=== PATIENT | male | born 1980 | race Caucasian/White ===

== ENCOUNTER 2021-06-23 12:27 | Emergency (ER) | payer OTHER ==
[2021-06-23 12:30] VITALS: TEMP 98
[2021-06-23] MEDS ORDERED: OXYMETAZOLINE 0.05% NASL SPRAY 1 SPRAY BOTTLE NASAL STA (12:35)
[2021-06-23] MEDS ORDERED: ALPRAZolam 1 MG TAB PO STA (12:58)
--- NOTE | 2021-06-23 13:00 | ED ---
General Adult HPI - General Chief complaint: ENT Stated complaint: Nosebleed Time Seen by Provider: 06/23/21 12:33 Source: patient Mode of arrival: ambulatory Limitations: no limitations - History of Present Illness Initial comments: This 41-year-old male with past medical history of hypertension presents emergency Department with a nosebleed. Patient states he has had a lot of stress lately with his mom dying and him being fired from his job which has increased his blood pressure at home. Patient states he has had 2 nosebleeds earlier in the week where he was seen at [facility] for his nosebleed. Patient denies being on any blood thinners. Patient states he was prescribed blood pressure medication last week which he believes is amlodipine and Lisinopril. Patient states he was talking to his friend about his mother passing away when the nosebleed began. Patient states this nosebleed that he currently has began around a half-hour ago. He states he has been holding pressure to his nose and states that it is coming out of his left nare. Patient denies any chest pain, shortness of breath, abdominal pain, nausea, vomiting, change in vision, headache, change in bowel or bladder. - Related Data Home Medications Medication Instructions Recorded Confirmed amLODIPine BESYLATE [Norvasc] 2.5 mg PO DAILY 06/23/21 06/23/21 lisinopriL 10 mg PO DAILY 06/23/21 06/23/21 metFORMIN HCL [Glucophage] 500 mg PO BID 06/23/21 06/23/21 Previous Rx's Medication Instructions Recorded ALPRAZolam [Xanax] 1 mg PO Q8H PRN 3 Days #9 tab 06/23/21 Amoxic-Pot Clav 875-125Mg 1 tab PO Q12HR #10 tab 06/23/21 [Augmentin 875-125] Allergies Allergy/AdvReac Type Severity Reaction Status Date / Time No Known Allergies Allergy Verified 06/23/21 14:39 Review of Systems ROS Statement: Those systems with pertinent positive or pertinent negative responses have been documented in the HPI. ROS Other: All systems not noted in ROS Statement are negative. Past Medical History Past Medical History: Hypertension History of Any Multi-Drug Resistant Organisms: None Reported Past Surgical History: No Surgical Hx Reported Past Psychological History: No Psychological Hx Reported Smoking Status: Never smoker Past Alcohol Use History: None Reported Past Drug Use History: Marijuana General Exam Limitations: no limitations General appearance: alert, in no apparent distress Head exam: Present: atraumatic Eye exam: Present: EOMI Pupils: Present: normal accommodation ENT exam: Present: other (Patient with 2 towels with a significant amount of bright red blood on them. Patient with bright red blood clot coming out of the left naris.) Neck exam: Present: full ROM Respiratory exam: Present: normal lung sounds bilaterally. Absent: respiratory distress, wheezes, rales, rhonchi, stridor Cardiovascular Exam: Present: regular rate, normal rhythm, normal heart sounds. Absent: systolic murmur, diastolic murmur, rubs, gallop, clicks GI/Abdominal exam: Present: soft, normal bowel sounds. Absent: distended, tenderness, guarding, rebound, rigid Extremities exam: Present: full ROM Back exam: Present: full ROM. Absent: CVA tenderness (R), CVA tenderness (L) Neurological exam: Present: alert, oriented X3 Psychiatric exam: Present: normal affect, normal mood Skin exam: Present: warm, dry, intact, normal color. Absent: rash Course Vital Signs 06/23/21 06/23/21 06/23/21 12:28 14:05 15:35 Temperature 98 F Pulse Rate 110 H 89 86 Respiratory 20 18 20 Rate Blood Pressure 213/107 140/112 144/104 O2 Sat by Pulse 98 95 98 Oximetry - Reevaluation(s) Reevaluation #1: 06/23/21 15:04 After Afrin spray, nasal packing, Xanax, patient's blood pressure was decreased and hemostasis was obtained. Medical Decision Making - Medical Decision Making This 41-year-old male with a past medical history of hypertension presents emergency Department with nosebleed. Merocel placed in left nostril. Afrin nasal spray was used and bilateral nostrils, nasal clamp was put on. Hemostasis was obtained. No blood draining down the posterior oropharynx. No blood coming from either nostril. After Xanax was given, blood pressure dropped from 213/107 down to 140/112. While patient was in the emergency room he denied having any high blood pressure symptoms such as headache, nausea, vomiting, double or blurred vision. Labs unremarkable. Patient informed to take antibiotics and to keep the nasal packing in place until he follows up with an ENT in the next 48- 72 hours. Strict return precautions were discussed. Patient verbally agreed to plan. Patient sent home in stable condition. Case discussed with my attending, . - Lab Data Result diagrams: 06/23/21 13:58 06/23/21 13:58 Lab Results 06/23/21 06/23/21 06/23/21 Range/Units 13:58 13:58 13:58 WBC 8.5 (3.8-10.6) k/uL RBC 4.79 (4.30-5.90) m/uL Hgb 14.6 (13.0-17.5) gm/dL Hct 43.4 (39.0-53.0) % MCV 90.6 (80.0-100.0) fL MCH 30.5 (25.0-35.0) pg MCHC 33.7 (31.0-37.0) g/dL RDW 13.3 (11.5-15.5) % Plt Count 356 (150-450) k/uL MPV 6.8 Neutrophils % 76 % Lymphocytes % 18 % Monocytes % 3 % Eosinophils % 1 % Basophils % 1 % Neutrophils # 6.5 (1.3-7.7) k/uL Lymphocytes # 1.6 (1.0-4.8) k/uL Monocytes # 0.2 (0-1.0) k/uL Eosinophils # 0.1 (0-0.7) k/uL Basophils # 0.1 (0-0.2) k/uL PT 10.1 (9.0-12.0) sec INR 0.9 (<1.2) APTT 22.0 (22.0-30.0) sec Sodium 137 (137-145) mmol/L Potassium 4.1 (3.5-5.1) mmol/L Chloride 100 (98-107) mmol/L Carbon Dioxide 30 (22-30) mmol/L Anion Gap 7 mmol/L BUN 16 (9-20) mg/dL Creatinine 0.96 (0.66-1.25) mg/dL Est GFR (CKD-EPI)AfAm >90 (>60 ml/min/1.73 sqM) Est GFR (CKD-EPI)NonAf >90 (>60 ml/min/1.73 sqM) Glucose 224 H (74-99) mg/dL Calcium 9.7 (8.4-10.2) mg/dL Total Bilirubin 1.0 (0.2-1.3) mg/dL AST 36 (17-59) U/L ALT 52 H (4-49) U/L Alkaline Phosphatase 70 (38-126) U/L Total Protein 7.8 (6.3-8.2) g/dL Albumin 4.1 (3.5-5.0) g/dL Disposition Clinical Impression: Epistaxis Disposition: HOME SELF-CARE Condition: Stable Instructions (If sedation given, give patient instructions): Nosebleed (ED) Additional Instructions: Return to the emergency department with any concerning, new, worsening symptoms. Please follow-up with ears nose and throat within the next 48-72 hours. Please follow up with her primary care provider in the next 24-48 hours for blood pressure control. Take antibiotics as directed. Prescriptions: Amoxic-Pot Clav 875-125Mg [Augmentin 875-125] 1 tab PO Q12HR #10 tab ALPRAZolam [Xanax] 1 mg PO Q8H PRN 3 Days #9 tab PRN Reason: Anxiety Is patient prescribed a controlled substance at d/c from ED?: No Referrals: None,Stated [Primary Care Provider] - 1-2 days Jose Madrigal MD [STAFF PHYSICIAN] - 1-2 days Time of Disposition: 14:55
[2021-06-23 14:10] LABS: Basophils # (A) 0.1 k/uL (0-0.2); Basophils % (A) 1 %; Eosinophils # (A) 0.1 k/uL (0-0.7); Eosinophils % (A) 1 %; HCT 43.4 % (39.0-53.0); HGB 14.6 gm/dL (13.0-17.5); Lymphocytes # (A) 1.6 k/uL (1.0-4.8); Lymphocytes % (A) 18 %; MCH 30.5 pg (25.0-35.0); MCHC 33.7 g/dL (31.0-37.0); MCV 90.6 fL (80.0-100.0); Mean Platelet Volume 6.8; Monocytes # (A) 0.2 k/uL (0-1.0); Monocytes % (A) 3 %; Neutrophils # (A) 6.5 k/uL (1.3-7.7); Neutrophils % (A) 76 %; Platelet Count 356 k/uL (150-450); RBC 4.79 m/uL (4.30-5.90); RDW 13.3 % (11.5-15.5); WBC 8.5 k/uL (3.8-10.6)
[2021-06-23 14:23] LABS: ALT 52 U/L (4-49); AST 36 U/L (17-59); African American GFR (CKD) >90 (>60 ml/min/1.73 sqM); Albumin 4.1 g/dL (3.5-5.0); Alkaline Phosphatase 70 U/L (38-126); Anion Gap 7 mmol/L; Blood Urea Nitrogen 16 mg/dL (9-20); Calcium 9.7 mg/dL (8.4-10.2); Carbon Dioxide 30 mmol/L (22-30); Chloride 100 mmol/L (98-107); Glucose 224 mg/dL (74-99); Non-African American GFR(CKD) >90 (>60 ml/min/1.73 sqM); Potassium 4.1 mmol/L (3.5-5.1); Sodium 137 mmol/L (137-145); Total Protein 7.8 g/dL (6.3-8.2)
[2021-06-23 14:24] LABS: INR 0.9 (<1.2); Prothrombin Time 10.1 sec (9.0-12.0)
[2021-06-23 15:36] VITALS: BP 144/104; PULSE 86; RESP 20
== END 2021-06-23 15:35 | disposition home or self-care (01) ==
LOC: EC 12:27
DX: R04.0 Epistaxis (principal); I10 Essential (primary) hypertension
CPT/HCPCS: 30901; 36415; 80053; 85025; 85610; 85730; 99283